=== PATIENT | female | born 1985 | race Caucasian/White ===

== ENCOUNTER 2020-10-10 15:09 | Emergency (ER) | payer SELFPAY ==
[2020-10-10 15:25] VITALS: BP 151/91; PULSE 88; TEMP 99.4; BMI 24.0
[2020-10-10 16:39] LABS: ALBUMIN 4.2 g/dl (3.4-5.0); BILIRUBIN,TOTAL 0.5 mg/dl (0.2-1); CALCIUM 9.5 mg/dl (8.5-10); CREATININE 0.8 mg/dl (0.55-1.3); POTASSIUM 3.4 mmol/L (3.5-5.1); TOT PROT 7.5 g/dl (6.4-8.2)
[2020-10-10 17:44] LABS: BASO % 0.7 % (0-2.0); EOS % 0.8 % (0-4.5); HEMATOCRIT 39.8 % (32.4-45.2); HEMOGLOBIN 13.3 GM/dL (10.7-15.3); LYMPH % 50.6 % (8-40); MCH 31.1 pg (25.7-33.7); MCHC 33.5 g/dl (32.0-36.0); MEAN CELL VOLUME 92.7 fl (80-96); MEAN PLT VOLUME 9.7 fl (7.5-11.1); MONO % 7.9 % (3.8-10.2); RBC 4.29 M/mm3 (3.60-5.2); RDW 14.5 % (11.6-15.6); WHITE BLOOD COUNT 4.5 K/mm3 (4.0-10.0)
[2020-10-10 18:21] LABS: PLATELET COUNT 157 K/MM3 (134-434); PLATELET ESTIMATE DECREASED
== END 2020-10-10 16:50 | disposition home or self-care (01) ==
LOC: FER 15:09
DX: R07.89 Other chest pain (principal)
CPT/HCPCS: 36415; 71045-TC-FY; 80053; 84484; 85025; 85379; 99285-25; C9803; U0003

== ENCOUNTER 2020-10-10 19:37 | Emergency (ER) | payer SELFPAY ==
[2020-10-10 19:59] VITALS: BP 146/68; PULSE 100; TEMP 97.8; BMI 24.0
== END 2020-10-10 22:43 | disposition home or self-care (01) ==
LOC: SUPCPDRO 19:37 → FER 19:37
DX: R06.00 Dyspnea, unspecified (principal)
CPT/HCPCS: 71275-TC; 81025; 99284-25; Q9967